=== PATIENT | female | born 1955 | race Caucasian/White ===

== ENCOUNTER → 2017-12-29 | Outpatient (CLI) | payer BC, OTHER ==
--- NOTE | 2018-01-01 11:36 | MM ---
Reason for exam: screening (asymptomatic). Last mammogram was performed 1 year and 3 months ago. History: Patient is postmenopausal, has history of other cancer at age 56, and had first child at age 29. Benign left mammotome panel of the left breast, December 06, 2006. Benign left mammotome panel of the left breast, December 06, 2006. Benign stereotactic core biopsy of the right breast, January 11, 2001. Benign core biopsy of the right breast. Benign excisional biopsy of the right breast. Physical Findings: A clinical breast exam by your physician is recommended on an annual basis and results should be correlated with mammographic findings. MG 3D Screening Mammo W/Cad Bilateral CC and MLO view(s) were taken. Prior study comparison: September 20, 2016, bilateral MG 3d screening mammo w/cad. September 17, 2015, bilateral MG screening mammo w CAD. There are scattered fibroglandular densities. Stable benign calcifications bilaterally. Previous mammotome biopsy in the right and left breast. No significant changes when compared with prior studies. ASSESSMENT: Benign, BI-RAD 2 RECOMMENDATION: Routine screening mammogram of both breasts in 1 year.
== END | disposition home or self-care (01) ==
LOC: RADMAMWWP 16:12
PROVIDERS: ATTEND Family Medicine
DX: Z12.31 Encounter for screening mammogram for malignant neoplasm of breast (principal)
CPT/HCPCS: 77063; 77067

== ENCOUNTER → 2018-02-02 | Outpatient (CLI) | payer BC ==
--- NOTE | 2018-02-05 13:45 | BD ---
EXAMINATION TYPE: MG DEXA axial skeleton. DATE OF EXAM: 02/02/2018 COMPARISON: 08/22/2014 CLINICAL HISTORY: Postmenopausal female. Osteoporosis screening. Height: 65 IN Weight: 179 LBS FRAX RISK QUESTIONS: Alcohol (3 or more units per day): NO Family History (Parent hip fracture): YESMOTHER Glucocorticoids (More than 3mos): NO (Ex: prednisone, prednisolone, methylprednisolone, dexamethasone, and hydrocortisone). History of Fracture in Adulthood: NO Secondary Osteoporosis: 1. Type 1 Diabetes: NO 2. Hyperthyroidism: NO 3. Menopause before 45: NO 4. Malnutrition: NO 5. Chronic liver disease: NO Rheumatoid Arthritis: NO Current Tobacco Use: NO RISK FACTORS HISTORY OF: Family History of Osteoporosis: YES MOTHER Active: YES Postmenopausal woman: AGE 52 PART. HYST MEDICATIONS: Thyroid Medications: YES Which medication: Levothyroxine How Lon YEARS Additional Medications: LEVOTHYROXINE, INDERAL,LIPITOR, XERALTA, Additional History: TONSIL CANCER WITH CHEMO AND RADIATION EXAM MEASUREMENTS: Bone mineral densitometry was performed using the [employer] System. Bone mineral density as measured about the Lumbar spine is: ----- L1-L4(G/cm2): 1.080 T Score Values are as follows: ----- L2: -1.5 ----- L3: -0.3 ----- L4: 0.0 ----- L1-L4: -0.8 Bone mineral density has: Increased 4.2% since study of: 08/22/2014 Bone mineral density about the R hip (g/cm2): 0.827 Bone mineral density about the L hip (g/cm2): 0.793 T Score values are as follows: -----R Neck: -1.5 -----L Neck: -1.8 -----R Total: -0.9 -----L Total: -1.2 Bone mineral density has: Increased 2.8% since study of: 08/22/2014 IMPRESSION: Osteopenia (T Score between -2.5 and -1) with regards to the bilateral hips. There is slightly increased risk of fracture and the patient may be considered for treatment. Re-Screen 2-5 years. NOTE: T-SCORE=SD OF THE YOUNG ADULT MEAN.
== END ==
LOC: RADBDWWP 16:11
PROVIDERS: ATTEND Family Medicine
DX: M85.88 Other specified disorders of bone density and structure, other site (principal)
CPT/HCPCS: 77080

== ENCOUNTER → 2018-02-06 | Outpatient (CLI) | payer BC ==
--- NOTE | 2018-02-07 16:42 | EST ---
EXERCISE STRESS DATE OF STUDY: 02/06/2018 AGE: 62 SEX: Female HT: 5'5" WT: 179 PROTOCOL: John. STAGE: II DURATION OF EXERCISE: 7 HEART RATE REST: 75 BLOOD PRESSURE REST: 147/89 MAXIMUM HEART RATE ACHIEVED: 143 MAXIMUM BLOOD PRESSURE: 174/75 85% MPHR: 100% MPHR: 133 METS: 8.5 INDICATIONS: Chest pain. CLINICAL INFORMATION: STRESS DATA: Pre-testing physical examination showed a heart rate of 75, pressure 147/89 mmHg. Baseline EKG showed sinus mechanism. The patient exercised on the treadmill according to John protocol for a total of 7 minutes and achieved 8 METS with maximum heart rate of 143, which is about 100% of maximum predicted heart rate. Maximum blood pressure was 174/75 mmHg. Clinically the patient did not have any symptoms of chest pain or chest discomfort during the testing or in the recovery time. The EKG itself did not show any significant ST or T-wave abnormalities consistent with ischemia. CONCLUSION: 1. Good exercise capacity. 2. Normal EKG in response to exercise. MMODL / IJN: [id number] /
== END | disposition home or self-care (01) ==
LOC: RADNMMAIN 11:05
PROVIDERS: ATTEND Family Medicine
DX: R07.89 Other chest pain (principal)
CPT/HCPCS: 93017

== ENCOUNTER → 2019-01-24 | Outpatient (CLI) | payer BC, MEDICARE ==
--- NOTE | 2019-01-24 16:03 | XR ---
EXAMINATION TYPE: XR chest 2V DATE OF EXAM: 01/24/2019 COMPARISON: NONE HISTORY: Enlarged lymph nodes per order. Upper chest swelling on the left side per technologist. TECHNIQUE: Frontal and lateral views of the chest are obtained. FINDINGS: There is no focal air space opacity, pleural effusion, or pneumothorax seen. The cardiac silhouette size is within normal limits. The osseous structures are intact. IMPRESSION: No acute cardiopulmonary process.
--- NOTE | 2019-01-25 09:35 | MM ---
Reason for exam: screening (asymptomatic). Last mammogram was performed 1 year and 1 month ago. History: Patient is postmenopausal, has history of other cancer at age 56, and had first child at age 29. Benign left mammotome panel of the left breast, December 06, 2006. Benign left mammotome panel of the left breast, December 06, 2006. Benign stereotactic core biopsy of the right breast, January 11, 2001. Benign core biopsy of the right breast. Benign excisional biopsy of the right breast. Physical Findings: A clinical breast exam by your physician is recommended on an annual basis and results should be correlated with mammographic findings. MG 3D Screening Mammo W/Cad Bilateral CC and MLO view(s) were taken. Prior study comparison: December 29, 2017, bilateral MG 3d screening mammo w/cad. September 20, 2016, bilateral MG 3d screening mammo w/cad. The breast tissue is heterogeneously dense. This may lower the sensitivity of mammography. Benign appearing bilateral calcifications. No suspicious abnormality. Bilateral biopsy markers noted. No significant changes when compared with prior studies. ASSESSMENT: Benign, BI-RAD 2 RECOMMENDATION: Routine screening mammogram of both breasts in 1 year.
== END | disposition home or self-care (01) ==
LOC: RADMAMWWP 15:11
PROVIDERS: ATTEND Family Medicine
DX: Z12.31 Encounter for screening mammogram for malignant neoplasm of breast (principal); R59.0 Localized enlarged lymph nodes
CPT/HCPCS: 71046; 77063; 77067

== ENCOUNTER → 2019-11-26 | Outpatient (CLI) | payer MEDICARE ==
--- NOTE | 2019-11-26 12:18 | XR ---
EXAMINATION TYPE: XR chest 2V DATE OF EXAM: 11/26/2019 COMPARISON: 01/24/2019 HISTORY: 64-year-old female with chest pain TECHNIQUE: Frontal and lateral views FINDINGS: The cardiomediastinal silhouette, aorta, and pulmonary vasculature are within normal limits. Lungs an d pleural spaces are clear. IMPRESSION: No acute cardiopulmonary process.
== END | disposition home or self-care (01) ==
LOC: RADXRMAIN 10:41
PROVIDERS: ATTEND Family Medicine
DX: R07.89 Other chest pain (principal)
CPT/HCPCS: 71046

== ENCOUNTER → 2020-08-06 | Outpatient (CLI) | payer MEDICARE ==
--- NOTE | 2020-08-10 08:22 | MM ---
Reason for exam: screening (asymptomatic). Last mammogram was performed 1 year and 6 months ago. History: Patient is postmenopausal, has history of other cancer at age 56, and had first child at age 29. Benign left mammotome panel of the left breast, December 06, 2006. Benign left mammotome panel of the left breast, December 06, 2006. Benign stereotactic core biopsy of the right breast, January 11, 2001. Benign core biopsy of the right breast. Benign excisional biopsy of the right breast. Physical Findings: A clinical breast exam by your physician is recommended on an annual basis and results should be correlated with mammographic findings. MG 3D Screening Mammo W/Cad Bilateral CC and MLO view(s) were taken. Prior study comparison: January 24, 2019, bilateral MG 3d screening mammo w/cad. December 29, 2017, bilateral MG 3d screening mammo w/cad. The breast tissue is heterogeneously dense. This may lower the sensitivity of mammography. There are benign appearing round calcifications bilaterally. Previous mammotome biopsy in the right breast and in the left breast x 2. There is no discrete abnormality. ASSESSMENT: Benign, BI-RAD 2 RECOMMENDATION: Routine screening mammogram of both breasts in 1 year.
== END | disposition home or self-care (01) ==
LOC: RADMAMWWP 09:59
PROVIDERS: ATTEND Family Medicine
DX: Z12.31 Encounter for screening mammogram for malignant neoplasm of breast (principal)
CPT/HCPCS: 77063; 77067

== ENCOUNTER → 2021-08-17 | Outpatient (CLI) | payer MEDICARE ==
--- NOTE | 2021-08-18 12:46 | MM ---
Reason for exam: screening (asymptomatic). Last mammogram was performed 1 year ago. History: Patient is postmenopausal, has history of other cancer at age 56, and had first child at age 29. Benign left mammotome panel of the left breast, December 06, 2006. Benign left mammotome panel of the left breast, December 06, 2006. Benign stereotactic core biopsy of the right breast, January 11, 2001. Benign core biopsy of the right breast. Benign excisional biopsy of the right breast. Physical Findings: A clinical breast exam by your physician is recommended on an annual basis and results should be correlated with mammographic findings. MG 3D Screening Mammo W/Cad Bilateral CC and MLO view(s) were taken. Prior study comparison: August 06, 2020, bilateral MG 3d screening mammo w/cad. January 24, 2019, bilateral MG 3d screening mammo w/cad. There are scattered fibroglandular densities. Finding: There are indeterminate calcifications in the lower inner quadrant of the right breast 3-4cm from the nipple. New finding since August 06, 2020 and January 24, 2019. ASSESSMENT: Incomplete: need additional imaging evaluation, BI-RAD 0 RECOMMENDATION: Special view mammogram of the right breast. [facility] will attempt to contact patient to return for supplemental views.
== END | disposition home or self-care (01) ==
LOC: RADMAMWWP 09:46
PROVIDERS: ATTEND Family Medicine
DX: Z12.31 Encounter for screening mammogram for malignant neoplasm of breast (principal); Z78.0 Asymptomatic menopausal state; Z85.89 Personal history of malignant neoplasm of other organs and systems
CPT/HCPCS: 77063; 77067

== ENCOUNTER → 2021-08-23 | Outpatient (CLI) | payer MEDICARE ==
--- NOTE | 2021-08-23 11:12 | MM ---
Reason for exam: additional evaluation requested from abnormal screening. Last mammogram was performed less than 1 month ago. History: Patient is postmenopausal, has history of other cancer at age 56, and had first child at age 29. Benign left mammotome panel of the left breast, December 06, 2006. Benign left mammotome panel of the left breast, December 06, 2006. Benign stereotactic core biopsy of the right breast, January 11, 2001. Benign core biopsy of the right breast. Benign excisional biopsy of the right breast. Physical Findings: Nurse did not find any significant physical abnormalities on exam. MG 3D Work Up W/Cad RT CC with magnification, LM with magnification, and LM view(s) were taken of the right breast. Prior study comparison: August 17, 2021, bilateral MG 3d screening mammo w/cad. August 06, 2020, bilateral MG 3d screening mammo w/cad. January 24, 2019, bilateral MG 3d screening mammo w/cad. December 29, 2017, bilateral MG 3d screening mammo w/cad. There are scattered fibroglandular densities. The 3-4 o'clock grouped calcifications are not as apparent on the magnification views. 6 month follow up recommended. These results were verbally communicated with the patient and result sheet given to the patient on 08/23/21. ASSESSMENT: Probably benign, BI-RAD 3 RECOMMENDATION: Follow-up diagnostic mammogram of the right breast in 6 months.
== END | disposition home or self-care (01) ==
LOC: RADMAMWWP 09:34
PROVIDERS: ATTEND Family Medicine
DX: N64.89 Other specified disorders of breast (principal); R92.1 Mammographic calcification found on diagnostic imaging of breast; Z78.0 Asymptomatic menopausal state
CPT/HCPCS: 77065; G0279; 77061

== ENCOUNTER → 2021-08-26 | Outpatient (CLI) | payer MEDICARE ==
--- NOTE | 2021-08-30 20:36 | BD ---
EXAMINATION TYPE: Axial Bone Density DATE OF EXAM: 08/26/2021 COMPARISON: 2018 CLINICAL HISTORY: Postmenopausal screening Height: 64 Weight: 170.2 FRAX RISK QUESTIONS: Alcohol (3 or more units per day): no Family History (Parent hip fracture): yes Glucocorticoids (More than 3mos): no (Ex: prednisone, prednisolone, methylprednisolone, dexamethasone, and hydrocortisone). History of Fracture in Adulthood: no Secondary Osteoporosis: 1. Type 1 Diabetes: no 2. Hyperthyroidism: no 3. Menopause before 45: no 4. Malnutrition: no 5. Chronic liver disease: no Rheumatoid Arthritis: no Current Tobacco Use: no RISK FACTORS HISTORY OF: Surgery to Spine/Hip(right/left)/Wrist (right/left): no Family History of Osteoporosis: yes Active: yes Diet low in dairy products/other sources of calcium: no Postmenopausal woman: yes Lost more than 2 inches in height since high school: no MEDICATIONS: indural, lipitor, aspirin Thyroid Medications: levothyroxine How Lon years Additional History: EXAM MEASUREMENTS: Bone mineral densitometry was performed using the [employer] System. Bone mineral density as measured about the Lumbar spine is: ----- L1-L4(G/cm2): 1.093 T Score Values are as follows: ----- L2: -1.6 ----- L3: -0.2 ----- L4: -0.5 ----- L1-L4: -0.7 Bone mineral density has: increased 1.8 % since study of: 02.02.2018 Bone mineral density about the R hip (g/cm2): 0.820 Bone mineral density about the L hip (g/cm2): 0.787 T Score values are as follows: -----R Neck: -1.6 -----L Neck: -1.8 -----R Total: -1.2 -----L Total: -1.5 Bone mineral density has: decreased -4.0 % since study of: 02.02.2018 IMPRESSION: Osteopenia (T Score between -2.5 and -1). There is slightly increased risk of fracture and the patient may be considered for treatment. Re-Screen 2-5 years. NOTE: T-SCORE=SD OF THE YOUNG ADULT MEAN.
== END | disposition home or self-care (01) ==
LOC: RADBDWWP 15:43
PROVIDERS: ATTEND Family Medicine
DX: M85.89 Other specified disorders of bone density and structure, multiple sites (principal); Z78.0 Asymptomatic menopausal state
CPT/HCPCS: 77080

== ENCOUNTER → 2022-09-06 | Outpatient (CLI) | payer MEDICARE ==
--- NOTE | 2022-09-07 08:36 | MM ---
Reason for Exam: Screening (asymptomatic). Last screening mammogram was performed 12 month(s) ago. Patient History: Menarche at age 12. First Full-Term at age 29. Late child-bearing (after 30). Hysterectomy at age 49. Postmenopausal. Other cancer, age 56. Benign Core Biopsy on the right side. Benign Excisional Biopsy on the right side. 12/06/2006, Benign Core Biopsy on the left side. 12/06/2006, Benign Core Biopsy on the left side. 01/11/2001, Benign Stereotactic Core Biopsy on the right side. Risk Values: Michelle 5 year model risk: 3.2%. NCI Lifetime model risk: 9.8%. Prior Study Comparison: 08/17/2021 Bilateral Screening Mammogram, [facility]. 08/23/2021 Right Diagnostic Mammogram, [facility]. 03/01/2022 Right MG 3D diag mammo w/cad RT, [facility]. Tissue Density: The breast tissue is heterogeneously dense. This may lower the sensitivity of mammography. Findings: Analyzed By CAD. There is no suspicious group of microcalcifications or new suspicious mass in either breast. Overall Assessment: Benign, BI-RAD 2 Management: Screening Mammogram of both breasts in 1 year. A clinical breast exam by your physician is recommended on an annual basis and results should be correlated with mammographic findings. Electronically signed and approved by: Mohinder Delgado M.D. Radiologis
== END | disposition home or self-care (01) ==
LOC: RADMAMWWP 09:58
PROVIDERS: ATTEND Family Medicine
DX: Z12.31 Encounter for screening mammogram for malignant neoplasm of breast (principal); Z78.0 Asymptomatic menopausal state
CPT/HCPCS: 77063; 77067

== ENCOUNTER → 2022-09-21 | Outpatient (CLI) | payer MEDICARE ==
--- NOTE | 2022-09-21 15:52 | XR ---
EXAMINATION TYPE: XR sacrum coccyx DATE OF EXAM: 09/21/2022 COMPARISON: None HISTORY: Fall 2 months prior TECHNIQUE: 3 views sacrum FINDINGS: Sacroiliac joints have degenerative change bilaterally, some vacuum phenomenon may be prese nt on the right. The sacrum appears intact. No acute fractures or dislocations are evident. Symphysis pubis appears no rmal. IMPRESSION: 1. Sacroiliac joint degenerative change. 2. No acute or chronic osseous abnormality coccyx.
--- NOTE | 2022-09-21 21:54 | MR ---
EXAMINATION TYPE: MR brain wo/w con DATE OF EXAM: 09/21/2022 COMPARISON: NONE HISTORY: headache TECHNIQUE: Multiplanar, multisequence images of the brain and brainstem is performed without and with IV contras t, utilizing 6.5 mL intravenous Gadavist . FINDINGS: Diffusion weighted images demonstrate no evidence of a recent infarct or other diffusion ab normality. There is mild ventricular and sulcal prominence. Occasional focus of T2 hyperintensity is seen throughout the white matter bilaterally. Less than 5 scattered tiny lesions are seen. Lesions a re nonspecific in appearance and distribution. T2 Star weighted images show no suspicious intraparenc hymal blood product. There is patchy fluid signal in the bilateral mastoid air cells. Midline structures demonstrate normal morphology. The craniocervical junction appears within normal limits. Post contrast images demonstrate no abnormal enhancement. The dural venous sinuses appear pa tent. The visualized sinuses are clear and the globes are intact. IMPRESSION: 1. Patchy fluid signal bilateral mastoid air cells with bilateral mastoiditis, correlate clinically. 2. Mild diffuse age-related cerebral atrophy and minimal nonspecific white matter changes favor produ ct of chronic small vessel ischemia. No abnormal enhancement or enhancing masses noted.
--- NOTE | 2022-09-21 21:58 | MR ---
EXAMINATION TYPE: MR angio head wo/w con DATE OF EXAM: 09/21/2022 COMPARISON: Prior MRA 06/02/2021 HISTORY: headache TECHNIQUE: Time of flight images focusing on the [place] were performed without and with IV contrast.. 2-D and 3-D postprocessing imaging is performed on the MRI scanner and reviewed. Patient injected with 6.5 cc of gadolinium . FINDINGS: There is a dominant left vertebral artery redemonstrated. Vertebral arteries are patent to the basilar junction. There are hypoplastic bilateral P1 segments with prominent patent bilateral po sterior communicating arteries filling the bilateral P2 segments. No aneurysm is seen. There is small caliber but patent anterior communicating artery axial image 82 series 301. There is n o significant focal stenosis or aneurysm in the anterior circulation. IMPRESSION: No aneurysm at the level of the [place].
== END | disposition home or self-care (01) ==
LOC: RADMRIMAIN 12:53
PROVIDERS: ATTEND Family Medicine
DX: G31.9 Degenerative disease of nervous system, unspecified (principal); M53.3 Sacrococcygeal disorders, not elsewhere classified; G44.84 Primary exertional headache
CPT/HCPCS: 72220; 70546; 70553; A9585

== ENCOUNTER → 2023-08-11 | Outpatient (CLI) | payer MEDICARE ==
--- NOTE | 2023-08-11 10:08 | US ---
EXAMINATION TYPE: US thyroid st tissue head/neck DATE OF EXAM: 08/11/2023 COMPARISON: NONE CLINICAL INDICATION: Female, 68 years old with history of R13.10 DYSPHAGIA; On thyroid medications; n o biopsies or surgeries done. GLAND SIZE: Right Lobe: 3.3 x 0.7 x 1.2 cm Overall Parenchyma: homogenous Left Lobe: 3.1 x 0.6 x 0.6 cm Overall Parenchyma: homogenous Isthmus Thickness: 0.1 cm NODULES RIGHT: # of nodules measured on right: 0 LEFT: # of nodules measured on left: 0 ISTHMUS: # of nodules measured in the isthmus: 0 Bilateral neck scanned, no evidence of lymphadenopathy. IMPRESSION: No suspicious thyroid nodules.
== END | disposition home or self-care (01) ==
LOC: RADUSWWP 09:35
PROVIDERS: ATTEND Family Medicine
DX: R13.10 Dysphagia, unspecified (principal)
CPT/HCPCS: 76536

== ENCOUNTER → 2023-09-07 | Outpatient (CLI) | payer MEDICARE ==
--- NOTE | 2023-09-07 11:47 | BD ---
EXAMINATION TYPE: Axial Bone Density DATE OF EXAM: 09/07/2023 CLINICAL HISTORY: 68 years old Female. ICD-10 CODE: M85.80 DISORDER OF BONE Height: 64.5 in Weight: 178 lbs FRAX RISK QUESTIONS: Family History (Parent hip fracture): yes mother RISK FACTORS HISTORY OF: Family History of Osteoporosis: yes mother Active: yes Postmenopausal woman: partial hysterectomy age 49 MEDICATIONS: Thyroid Medications: yes Which medication: Levothyroxine How Lon+ years Additional Medications: calcium, vit d, migraine meds, cholesterol meds, Additional History: throat cancer with chemo and radiation EXAM MEASUREMENTS: Bone mineral densitometry was performed using the [employer] System. Bone mineral density as measured about the Lumbar spine is: ----- L1-L4(G/cm2): 1.121 T Score Values are as follows: ----- L1: -1.2 ----- L2: -1.5 ----- L3: -0.1 ----- L4: 0.7 ----- L1-L4: -0.5 Z Score Values are as follows: ----- L1: 0.1 ----- L2: -0.3 ----- L3: 1.1 ----- L4: 2.0 ----- L1-L4: 0.8 Bone mineral density has: Increased 2.6% since study of: 08/26/2021 Bone mineral density about the R hip (g/cm2): 0.872 Bone mineral density about the L hip (g/cm2): 0.815 T Score values are as follows: -----R Neck: -1.4 -----L Neck: -1.9 -----R Total: -1.1 -----L Total: -1.5 Z Score values are as follows: -----R Neck: 0.0 -----L Neck: -0.4 -----R Total: 0.1 -----L Total: -0.3 Bone mineral density has: Increased 0.8% since study of: 08/26/2021 FRAX%s: The graph provided illustrates a 17.8% chance for a major osteoporotic fx and a 4.6% chance f or the hips probability for fx in 10 years time. IMPRESSION: Osteopenia (T Score between -2.5 and -1). There is slightly increased risk of fracture and the patient may be considered for treatment. Re-Screen 2-5 years. NOTE: T-SCORE=SD OF THE YOUNG ADULT MEAN.
--- NOTE | 2023-09-08 12:48 | MM ---
Reason for Exam: Screening (asymptomatic). Last screening mammogram was performed 12 month(s) ago. Patient History: Menarche at age 12. First Full-Term at age 29. Late child-bearing (after 30). Hysterectomy at age 49. Postmenopausal. Other cancer, age 56. Benign Core Biopsy on the right side. Benign Excisional Biopsy on the right side. 12/06/2006, Benign Core Biopsy on the left side. 12/06/2006, Benign Core Biopsy on the left side. 01/11/2001, Benign Stereotactic Core Biopsy on the right side. Risk Values: Michelle 5 year model risk: 3.3%. NCI Lifetime model risk: 9.4%. Prior Study Comparison: 08/23/2021 Right Diagnostic Mammogram, [facility]. 03/01/2022 Right MG 3D diag mammo w/cad RT, [facility]. 09/06/2022 Bilateral MG 3D screening mammo w/cad, [facility]. Tissue Density: There are scattered fibroglandular densities. Findings: Analyzed By CAD. Bilateral breast biopsy clips. There is no suspicious group of microcalcifications or new suspicious mass. Overall Assessment: Benign, BI-RAD 2 Management: Screening Mammogram of both breasts in [address] [facility] will attempt to contact patient to return for supplemental views and ultrasound if indicated. Patient should continue monthly self-breast exams. A clinical breast exam by your physician is recommended on an annual basis. This exam should not preclude additional follow-up of suspicious palpable abnormalities. Note on Michelle scores and lifetime risk: 1. A Michelle score greater than 3% is considered moderate risk. If this is the case, consider specialist referral to assess eligibility for a risk reducing agent. 2. If overall lifetime risk for the development of breast cancer is 20% or higher, the patient may qualify for future screening with alternating mammogram and breast MRI. Electronically signed and approved by: Tc Patterson DO
== END | disposition home or self-care (01) ==
LOC: RADMAMWWP 10:10
PROVIDERS: ATTEND Family Medicine
DX: Z12.31 Encounter for screening mammogram for malignant neoplasm of breast (principal); M85.89 Other specified disorders of bone density and structure, multiple sites; R13.10 Dysphagia, unspecified; Z78.0 Asymptomatic menopausal state
CPT/HCPCS: 77063; 77067; 77080

== ENCOUNTER → 2023-09-23 | Outpatient (CLI) | payer MEDICARE ==
--- NOTE | 2023-09-23 10:19 | MR ---
EXAMINATION TYPE: MR brain wo/w con DATE OF EXAM: 09/23/2023 10:02 AM CLINICAL INDICATION:Female, 68 years old with history of DIPLOPIA H53.2, Double vision COMPARISON: 09/21/2022 TECHNIQUE: Multi planar, multi sequence imaging was performed through the brain including: T1, T2, In version recovery, susceptibility weighted imaging and gradient echo imaging and Diffusion weighted im aging. The patient was then given intravenous contrast and multi planar, T1 fat-saturation images wer e obtained. IV Contrast: 7.5 cc Gadavist FINDINGS: The gordon-white junctions, ventricular system, basal cisterns appear unremarkable. Diffusion-weighted imaging shows no evidence of restricted diffusion to suggest acute/subacute infarct. Intracranial ar terial flow voids are maintained. Midline structures show no abnormality. Minimal scattered foci of h igh T2 signal intensity are seen within the periventricular white matter. The susceptibility weighted images do not reveal any evidence for micro-hemorrhage. After administration of gadolinium, no abnor mal enhancement is seen. The bone marrow signal is within normal limits. Paranasal sinuses and mastoid air cells: No significant paranasal sinus disease. Similar trace bilate ral mastoid air cell effusions. Visualized orbits: Bilaterally aphakia. The intraconal and extra conal fat is symmetric. No abnormal postcontrast enhancement IMPRESSION: 1. No evidence of intracranial mass, acute/subacute infarct, or abnormal enhancement. 2. Mild scattered Nonspecific white matter changes, likely related to small vessel ischemic disease.
== END | disposition home or self-care (01) ==
LOC: RADMRIMAIN 09:25
PROVIDERS: ATTEND Family Medicine
DX: R90.82 White matter disease, unspecified (principal); H53.2 Diplopia
CPT/HCPCS: 70553; A9585

== ENCOUNTER → 2024-09-18 | Outpatient (CLI) | payer MEDICARE ==
--- NOTE | 2024-09-22 03:23 | MM ---
Reason for Exam: Screening (asymptomatic). Last mammogram was performed 1 year(s) and 1 month(s) ago. Patient History: Menarche at age 12. First Full-Term at age 29. Late child-bearing (after 28). Hysterectomy at age 49. Postmenopausal. Other cancer, age 56. Benign Core Biopsy on the right side. Benign Excisional Biopsy on the right side. 12/06/2006, Benign Core Biopsy on the left side. 12/06/2006, Benign Core Biopsy on the left side. 01/11/2001, Benign Stereotactic Core Biopsy on the right side. Risk Values: Michelle 5 year model risk: 3.3%. NCI Lifetime model risk: 8.9%. Prior Study Comparison: 03/01/2022 Right MG 3D diag mammo w/cad RT, [facility]. 09/06/2022 Bilateral MG 3D screening mammo w/cad, [facility]. 09/07/2023 Bilateral MG 3D screening mammo w/cad, [facility]. Tissue Density: There are scattered areas of fibroglandular density. Findings: Analyzed By CAD. The pattern is symmetrical. Focal asymmetry in the outer right breast present previously. Core markers are present bilaterally. Multiple benign calcifications are present. No suspicious groups of microcalcifications, spiculated or lobular masses, architectural distortion or other secondary signs of malignancy are mammographically apparent. Overall Assessment: Benign, BI-RAD 2 Management: Screening Mammogram of both breasts in 1 year. A negative mammogram report should not preclude additional follow up of suspicious palpable abnormalities. Patient should continue monthly self breast exam. A clinical breast exam by your physician is recommended on an annual basis and results should be correlated with mammographic findings. Note on Michelle scores and lifetime risk: 1. A Michelle score greater than 3% is considered moderate risk. If this is the case, consider specialist referral to assess eligibility for a risk reducing agent. 2. If overall lifetime risk for the development of breast cancer is 20% or higher, the patient may qualify for future screening with alternating mammogram and breast MRI. [facility], , 09/22/2024 3:21 AM. Electronically signed and approved by: Jerome Zamora D.O. Radiologis
== END | disposition home or self-care (01) ==
LOC: RADMAMWWP 08:54
PROVIDERS: ATTEND Family Medicine
DX: Z12.31 Encounter for screening mammogram for malignant neoplasm of breast (principal); Z78.0 Asymptomatic menopausal state; R92.323 Mammographic fibroglandular density, bilateral breasts
CPT/HCPCS: 77063; 77067